=== PATIENT | female | born 1950 | race Caucasian/White ===

== ENCOUNTER → 2017-04-12 | Outpatient (CLI) | payer BC, MEDICARE | END | disposition home or self-care (01) | LOC: PCVCCLINIC 12:12 | DX: I10 Essential (primary) hypertension (principal); I69.320 Aphasia following cerebral infarction; E78.00 Pure hypercholesterolemia, unspecified; R00.2 Palpitations; I67.1 Cerebral aneurysm, nonruptured; Z82.49 Family history of ischemic heart disease and other diseases of the circulatory system; Z79.82 Long term (current) use of aspirin; Z79.899 Other long term (current) drug therapy | CPT/HCPCS: 93005; G0463 ==

== ENCOUNTER → 2017-06-28 | Outpatient (CLI) | payer MEDICARE ==
[~2017-06-28] MED LIST: EPINEPHrine 1 MG/ML VIAL; LIDOCAINE 1% Multi-Dose 50 ML VIAL.
== END | disposition home or self-care (01) ==
LOC: PCVCINTER 16:00
DX: I63.9 Cerebral infarction, unspecified (principal)
CPT/HCPCS: 33282; C1764; J0171

== ENCOUNTER → 2017-07-04 | Outpatient (CLI) | payer MEDICARE | END | disposition home or self-care (01) | LOC: PCVCIMAG 09:35 | DX: I10 Essential (primary) hypertension (principal); E78.5 Hyperlipidemia, unspecified; R00.2 Palpitations; I67.1 Cerebral aneurysm, nonruptured; I63.9 Cerebral infarction, unspecified; Z82.49 Family history of ischemic heart disease and other diseases of the circulatory system | CPT/HCPCS: 93325; 93351 ==